=== PATIENT | male | born 1995 | race Hispanic/Latino ===

== ENCOUNTER 2020-07-28 15:25 | Emergency (ER) | payer OTHER, SELFPAY ==
[2020-07-28] MEDS ORDERED: Lorazepam 2 MG/ML VIAL ONE (15:34)
[2020-07-28] MEDS ORDERED: Bacitracin 1 PK ONE ×2 (16:13→16:14)
[2020-07-28] MEDS ORDERED: Boostrix 0.5 ML (Tdap) VIAL ONE (16:51)
== END 2020-07-28 17:28 | disposition home or self-care (01) ==
LOC: CSHERS 15:25 → EEVIPCON 15:25 → CSHERS 17:28
DX: S21.232A Puncture wound without foreign body of left back wall of thorax without penetration into thoracic cavity, initial encounter (principal); W34.09XA Accidental discharge from other specified firearms, initial encounter
CPT/HCPCS: 71045; 71260; 90471; 90715; 96372; G0390; J2060

== ENCOUNTER 2020-08-01 17:46 | Emergency (ER) | payer OTHER, SELFPAY | END 2020-08-01 18:55 | disposition home or self-care (01) | LOC: CSHERS 17:46 | DX: Z77.21 Contact with and (suspected) exposure to potentially hazardous body fluids (principal) | CPT/HCPCS: 99283 ==

== ENCOUNTER 2022-08-07 03:56 | Emergency (ER) | payer OTHER, SELFPAY | END 2022-08-07 04:45 | disposition home or self-care (01) | LOC: CSHERS 03:56 | DX: R06.00 Dyspnea, unspecified (principal) | CPT/HCPCS: 71045; 93005 ==

== ENCOUNTER 2023-02-26 04:53 | Emergency (ER) | payer SELFPAY ==
[2023-02-26] MEDS ORDERED: Lidocaine 2% Viscous Solution 10 ML, Aluminum & Magnesium Hydroxide 30 ML SSW SCH (06:00)
== END 2023-02-26 06:30 | disposition home or self-care (01) ==
LOC: CSHERS 04:53
DX: R14.2 Eructation (principal); R06.02 Shortness of breath
CPT/HCPCS: 99284

== ENCOUNTER → 2025-03-26 | Emergency (ER) | payer SELFPAY | LOC: CSHERS 18:26 | DX: Z53.21 Procedure and treatment not carried out due to patient leaving prior to being seen by health care provider (principal) ==